=== PATIENT | male | born 1945 | race Caucasian/White ===

== ENCOUNTER 2017-07-05 11:39 | Emergency (ER) | payer MEDICARE, BC ==
--- NOTE | 2017-07-05 11:49 | ED Physician Chart ---
ED Chief Complaint/HPI - Patient Information Date Seen:: 07/05/17 Time Seen:: 11:41 Chief Complaint:: Rash in R side of abdomen History of Present Illness:: Brought in by ambulance because he noticed rash in RLQ of abdomen this morning. No fever. The rash is minimally painful. No fever. Pt thinks that there was something that came in contact with his abdomen that caused the abrasion. Pt take po well without N/V/D. No abdominal pain or discomfort otherwise. Allergies:: Codeine Vitals:: see Nurse Note. Historian:: Patient Family MD/PCP:: [facility]. LMP:: N/A Review:: Nurse's Note Reviewed ED Review of Systems - Review of Systems General/Constitutional: No fever, No chills, No weakness, Edema (chronic LE edema.) Skin: Other (Abrasion in RLQ of abdomen.) Head: No headache, No light-headedness Eyes: No loss of vision, No pain ENT: No earache, No nasal drainage, No sore throat Neck: No neck pain, No swelling, No thyromegaly, No stiffness, No mass noted Cardio Vascular: No chest pain, No palpitations Pulmonary: No SOB, No cough, No wheezing GI: No nausea, No vomiting, No diarrhea, No pain G/U: No dysuria, No frequency, No hematuria Musculoskeletal: No bone or joint pain Endocrine: No polyuria, No polydipsia Psychiatric: No prior psych history Hematopoietic: No bruising, No lymphadenopathy Allergic/Immuno: No urticaria, No angioedema Neurological: No syncope, No focal symptoms, No weakness, No paresthesia, No headache, No dizziness, No confusion ED Past Medical History - Past Medical History Past Medical History: HTN, Other (Chronic LE edema ) Social History: Non Smoker, No Alcohol, No Drug Use, Legally Employment:: Retired Surgical History: other (Partial colectomy about 12 years ago.) Psychiatricy History: None Medication: Reviewed Family Medical History - Family Member Mother History Unknown: Yes ED Physical Exam - Physical Examination General/Constitutional: Awake, Well-developed, well-nourished, Alert, No distress, GCS 15, Non-toxic appearing, Ambulatory Other Gen/Cons comments:: Breathes comfortably, speaks clearly, and interacts normally. Head: Atraumatic Eyes: Lids, conjuctiva normal, PERRL, EOMI Skin: No ecchymosis, Well hydrated, No lymphadenopathy Other Skin comments:: There is an area approx. 7 x 6 cm superficial abrasion in RLQ abdomen. Nontender. No peripheral erythema or red streakings. No crepitus or exudate. ENMT: Oropharynx nl Neck: Nontender, Full ROM w/o pain, No JVD, No nuchal rigidity, No bruit, No mass, No stridor Respiratory: Nl effort/Exclusion, Clear to Auscultation, No Wheeze/Rhonchi/Rales Cardio Vascular: RRR, No murmur, gallop, rubs GI: No tenderness/rebounding/guarding, No organomegaly, No hernia, Normal BS's, Nondistended, No mass/bruits, No McBurney tenderness Other GI comments:: Abdomen is obese but soft. See also Skin exam. Other Extremities comments:: Both lower legs shows chronic changes with lichenification at distal aspect. There are small areas of raw skin at distal aspect of both lower legs with edema without erythema or exudate. Nontender. No unusual warmth or crepitus. Palpable distal pulses. Neuro/Psych: Alert/oriented (oriented x 3. ), No focal deficits ED Septic Shock - . Is Septic Shock (SBP<90, OR Lactate>4 mmol\L) present?: No ED Reassessment (Disposition) - Reassessment Reassessment:: 1310 Pt finished his lunch completely and feels well. Pt requests to leave now and does not want further observation/management in hospital. Aftercare instructions have been given. Reassessment Condition:: Improved - Diagnosis Diagnosis:: Superficial abrasion in RLQ of abdomen. Stable. Chronic stasis dermatitis in both lower legs. - Aftercare/Follow up Instructions Aftercare/Follow-Up Instructions:: Refer to Discharge Instructions Notes:: Keep affected areas clean and dry. May apply Neosporin ointment to abrasion and raw skin areas q12h as directed. Wound care instructions have been given. F/U with PCP at [facility] in one day for recheck. Return to ER immediately if condition worsens or if any further questions/problems. Medication Prescribed:: Bactrim DS one tab po q12h D-20 R-0 - Patient Disposition Discharge/Transfer:: Home Time:: 13:15 Condition at Disposition:: Stable, Improved ED Discharge Plan - Patient Disposition Admit/Discharge/Transfer: PT DISCHARGED HOME Condition at Disposition: Stable Prescriptions: Sulfamethoxazole/TMP [Bactrim Ds] 1 tab PO Q12HR #20 tab Instructions: Stasis Dermatitis, Abrasion, [id number] Additional Instructions: Pls follow up with primary care physician in 1-2 days.
[2017-07-05] MEDS ORDERED: Triple Antibiotic 0.94 gm Pkt TP STA (12:13)
[2017-07-05] MEDS ORDERED: Sulfamethoxazole/TMP 800/160mg Tab PO ONE (12:14)
[2017-07-05 12:35] VITALS: BP 132/85
[2017-07-05] MEDS ORDERED: Sulfamethoxazole/TMP 800/160mg Tab ONE (12:35)
[2017-07-05] MEDS ORDERED: Bacitracin pkt 1 gm Pkt TP ONE (12:35)
== END 2017-07-05 13:20 | disposition home or self-care (01) ==
LOC: ER 11:39
DX: S30.811A Abrasion of abdominal wall, initial encounter (principal); I87.2 Venous insufficiency (chronic) (peripheral); X58.XXXA Exposure to other specified factors, initial encounter; Y93.89 Activity, other specified; Y92.89 Other specified places as the place of occurrence of the external cause; Y99.8 Other external cause status
CPT/HCPCS: 99284; Z7610; Z7502